=== PATIENT | female | born 1980 | race Caucasian/White ===

== ENCOUNTER 2017-12-26 23:18 | Emergency (ER) | payer OTHER ==
[2017-12-26 23:27] VITALS: TEMP 97.9
[2017-12-26] MEDS ORDERED: SODIUM CHLORIDE 0.9% 1,000 ML IV STA (23:38)
[2017-12-26] MEDS ORDERED: DIPH,PERTUS(ACELL)TETVAC-LF 0.5 ML VIAL IM ONE (23:44)
[2017-12-26] MEDS ORDERED: KETOROLAC 30 MG/ML 1 ML VIAL IVP STA (23:44)
[2017-12-27] MEDS ORDERED: ACETAMINOPHEN TAB 500 MG TAB PO STA (00:25)
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
[2017-12-27 01:42] VITALS: BP 146/91; PULSE 67; RESP 16
== END 2017-12-27 01:56 | disposition home or self-care (01) ==
LOC: EC 23:18
DX: T23.032A Burn of unspecified degree of multiple left fingers (nail), not including thumb, initial encounter (principal); T22.00XA Burn of unspecified degree of shoulder and upper limb, except wrist and hand, unspecified site, initial encounter; T21.02XA Burn of unspecified degree of abdominal wall, initial encounter; F31.9 Bipolar disorder, unspecified; F17.200 Nicotine dependence, unspecified, uncomplicated; Z79.899 Other long term (current) drug therapy; Z88.1 Allergy status to other antibiotic agents; Z53.29 Procedure and treatment not carried out because of patient's decision for other reasons; Z23 Encounter for immunization; X12.XXXA Contact with other hot fluids, initial encounter; Y92.009 Unspecified place in unspecified non-institutional (private) residence as the place of occurrence of the external cause
CPT/HCPCS: 99283; 16020; 96374; 96361; 90471; J1885; 90715

== ENCOUNTER → 2021-10-12 | Outpatient (CLI) | payer OTHER ==
[2021-10-13 01:24] LABS: Basophils # (A) 0.04 X 10*3/uL (0.00-0.10); Basophils % (A) 0.6 %; Eosinophils # (A) 0.06 X 10*3/uL (0.04-0.35); Eosinophils % (A) 0.9 %; HCT 45.3 % (37.2-46.3); HGB 14.7 g/dL (12.0-15.0); Immature Grans, Automated 0.1 %; Lymphocytes # (A) 1.45 X 10*3/uL (0.90-5.00); Lymphocytes % (A) 21.7 %; MCH 30.1 pg (27.0-32.0); MCHC 32.5 g/dL (32.0-37.0); MCV 92.6 fL (80.0-97.0); Mean Platelet Volume 10.9 fL (9.5-12.2); Monocytes # (A) 0.52 X 10*3/uL (0.20-1.00); Monocytes % (A) 7.8 %; NRBC Per 100 WBC 0 /100 WBCS (0.0-0.0); Neutrophils % (A) 68.9 %; Platelet Count 238 X 10*3/uL (140-440); RBC 4.89 X 10*6/uL (4.10-5.20); RDW 12.2 % (11.5-14.5); WBC 6.68 X 10*3/uL (4.50-10.00)
== END | disposition home or self-care (01) ==
LOC: LABPAT 11:08
PROVIDERS: ATTEND Obstetrics & Gynecology
DX: Z01.812 Encounter for preprocedural laboratory examination (principal); N87.1 Moderate cervical dysplasia
CPT/HCPCS: 85025; 93005

== ENCOUNTER 2021-10-18 07:15 | Day surgery (SDC) | payer OTHER ==
[2021-10-17 12:16] VITALS: BMI 26.6
[~2021-10-18 07:15] MED LIST: DEXAMETHASONE SOD PHOSPHATE 4 MG/ML 1 ML VIAL IV ONE; HYDROmorphone 0.5 MG/0.5 ML SYRINGE IVP PRN; LACTATED RINGERS 1,000 ML IV SCH; ONDANSETRON 4 MG/2 ML VIAL IVP ONE; Pre Op ABX Message 1 EACH MISC MISCELLANE ONE
[2021-10-18] MEDS ORDERED: fentaNYL (PF) 50 MCG/ML 2 ML AMP ONE (09:50)
[2021-10-18] MEDS ORDERED: PROPOFOL 10 MG/ML 20 ML VIAL IV ONE (09:50)
[2021-10-18] MEDS ORDERED: MIDAZOLAM 2 MG/2 ML VIAL ONE (09:50)
[2021-10-18] MEDS ORDERED: LIDOCAINE 1% INJ 10MG/ML (20 ML MDV) ONE (09:50)
[2021-10-18] MEDS ORDERED: VASOPRESSIN 20 UNIT/ML 1 ML VIAL SQ ONE (10:13)
[2021-10-18] MEDS ORDERED: FERRIC SUBSULFATE (MONSELS) JAR TOPICAL ONE (10:24)
--- NOTE | 2021-10-18 10:32 | P.OP ---
Date of Procedure: 10/18/21 Preoperative Diagnosis: Positive ECC, high-grade TRAVIS Postoperative Diagnosis: Same, pathology pending Procedure(s) Performed: Cold knife cervical conization, endocervical curettage Anesthesia: SHANNONA Surgeon: Gwendolyn Javed Estimated Blood Loss (ml): 10 IV fluids (ml): 400 Urine output (ml): 100 Pathology: other (Cervical conization specimen, endocervical curettage) Condition: stable Disposition: PACU Description of Procedure: Patient is brought to the operative suite where a general anesthetic is administered without difficulty. She's placed in the dorsal lithotomy position. Urine hCG is negative, urine appropriate timeout is performed to assure proper patient and procedural identification. The cervix, vagina, perineal bodies are all prepped and draped in the usual sterile fashion. Weighted speculum was placed into the vagina. Red Robledo catheter is used and the bladder is drained for approximately 100 mL of clear yellow urine. Anterior lip of the cervix is grasped with an Allis clamp. The cervix is injected circumferentially with a dilute Pitressin solution. Stay sutures are placed of 0 Vicryl, on the left from 2:00 to 4:00, tied and held with a hemostat, and on the right from 10:00 to 8:00, tied and held with a hemostat. At this time 8 curved scalpel is used and the conization specimen is procured. It is sutured tagged at 12:00 and sent to pathology. A Telfa pad is placed, and a vigorous endocervical curettage is performed with a Kevorkian curet. Specimen is sent under separate cover. Bovie is then used on the base of the cervical defect to thoroughly cauterize the remaining tissue. Monsel solution is placed. Hemostasis is excellent. Stay stitches are removed. All sponge needle and enhancement counts are correct. Clean pad is placed. Toradol is given prior to leaving the operative suite. Total estimated blood loss 10 mL, fluid replacement 400 mL, urine 100 mL's. Patient is brought back to recovery room in very good condition with stable vital signs including blood pressure 150/80, pulse 70. She will follow-up with me in the office in 2 weeks.
[2021-10-18] MEDS ORDERED: KETOROLAC 15 MG/ML 1 ML VIAL IVP ONE (10:38)
[2021-10-18 10:40] VITALS: TEMP 97.2
[2021-10-18] MEDS ORDERED: hydrALAZINE HCL 20 MG/ML 1 ML VIAL IV ONE (10:55)
[2021-10-18 11:14] VITALS: RESP 18
[2021-10-18 11:27] VITALS: BP 162/92; PULSE 73
== END 2021-10-18 11:47 | disposition home or self-care (01) ==
LOC: OR 07:15
PROVIDERS: ATTEND Obstetrics & Gynecology
DX: N87.1 Moderate cervical dysplasia (principal); F17.200 Nicotine dependence, unspecified, uncomplicated; F32.A Depression, unspecified; F41.9 Anxiety disorder, unspecified; K21.9 Gastro-esophageal reflux disease without esophagitis
CPT/HCPCS: 57520; 81025; 88305; 88307; J2250; J0360; J1100; J2405; J2001; J3010; J1885; J2704